=== PATIENT | male | born 1940 | race Caucasian/White ===

== ENCOUNTER 2019-09-23 02:54 | Observation (INO) | payer MEDICARE, SELFPAY ==
[2019-09-23] VITALS (10 sets, daily range): BP systolic 115–165; BP diastolic 54–86; PULSE 53–72; RESP 9–20; TEMP 36.2–36.6; O2SAT 89–99; BMI 29.0
--- NOTE | ~2019-09-23 | CT_ITS ---
EXAMINATION: CT brain wo con DATE: 09/23/2019 03:58 INDICATION: Headache and dizziness post fall with head injury TECHNIQUE: Computed tomography (CT) of the head was performed without intravenous contrast. Sagittal and coronal reconstructions were performed. The mA was adjusted according to patient size. Iterative reconstruction technique was employed. The dose-length product was 605.33 mGy-cm. COMPARISON: head CT dated 03/21/2018 FINDINGS: No fracture. Small old lacunar infarct at the head of the left caudate nucleus. Additional small old infarcts at the high left parietal lobe and in the right cerebellar hemisphere. There is mild scatter ed white matter hypoattenuation consistent with chronic small vessel ischemic disease. No acute intra cranial hemorrhage, acute infarction or abnormal extra axial fluid collection. Ventricles are normal and symmetric. No mass/mass effect. Chronic small metallic foreign body which appears embedded along the anterior table of the right frontal bone. Changes of bilateral intraocular lens replacement. The orbits, paranasal sinuses and mastoid air cells are normal. Intracranial calcified cerebral atherosc lerosis is noted. IMPRESSION: 1. No fracture or acute intracranial process. 2. Small old infarcts at the left caudate nucleus, left parietal lobe and right cerebellar hemisphere . 3. Mild scattered white matter hypoattenuation consistent with chronic small vessel ischemic disease. Reviewed, dictated and finalized at location A. IMPRESSION: 1. No fracture or acute intracranial process. 2. Small old infarcts at the left caudate nucleus, left parietal lobe and right cerebellar hemisphere. 3. Mild scattered white matter hypoattenuation consistent with chronic small ve ssel ischemic disease.
--- NOTE | 2019-09-23 02:56 | ED.FALL ---
HPI - Fall General Chief Complaint: Fall Stated Complaint: fall Time Seen by Provider: 09/23/19 02:52 Source: patient, EMS and RN notes reviewed Mode of arrival: EMS Limitations: clinical condition History of Present Illness HPI Narrative: A 79 y/o male presents to the ED via EMS from home after having multiple ground level falls this evening. Per EMS states that the pt's reported that the pt has fallen multiple times tonight and during the last one he hit the top of his head. The pt reports a CANCHOLA and dizziness. EMS also notes that the pt has been having slurred speech but that per the pt's that is a chronic issue. The pt denies any CP, SOB, or palpitations. MD complaint: fall Onset (ago): unknown Fall from: standing Place fall occurred: home Symptoms prior to fall: dizziness Location of injury: head Associated symptoms (after fall): headache and other (dizziness and slurred speech (chronic)) Related Data Home Medications Medication Instructions Recorded Confirmed amlodipine 5 mg tablet 5 mg PO DAILY 06/07/19 aspirin 81 mg tablet,delayed 81 mg PO DAILY 06/07/19 release atorvastatin 40 mg tablet 40 mg PO QPM tablet 06/07/19 gabapentin 600 mg tablet 600 mg PO TID 06/07/19 isosorbide mononitrate 60 mg 120 mg PO QAM tablet 06/07/19 tablet,extended release 24 hr melatonin 10 mg capsule 10 mg PO .QHS cap 06/07/19 metoclopramide HCl 10 mg tablet 10 mg PO Q6H PRN 06/07/19 nitroglycerin 0.4 mg sublingual 0.4 mg SUBLINGUAL Q5M PRN 06/07/19 tablet furosemide 20 mg tablet 20 mg PO QAM 07/19/19 potassium chloride 10 mEq 10 meq PO DAILY 07/19/19 tablet,extended release acetaminophen [Tylenol Extra 1,000 mg PO TID 09/23/19 Strength] metoprolol tartrate 25 mg PO BID 09/23/19 Allergies Allergy/AdvReac Type Severity Reaction Status Date / Time DARBY Inhibitors Allergy Mild Unknown Verified 09/23/19 03:21 Review of Systems Review of Systems: All systems reviewed & are unremarkable except as noted in HPI and below Cardiovascular: Cardiovascular: Denies chest pain and Denies palpitations Respiratory: Respiratory: Denies dyspnea Neurologic: Reports Abnormal speech present (slurred - chronic), Reports dizziness, Reports frequent falls and Reports headache(s) [facility] Past Medical History Medical History Arthritis CAD (coronary artery disease) Carotid artery calcification Carotid stenosis, left Chronic arthralgias of knees and hips CVA (cerebrovascular accident) Fusion of lumbar spine Gastroparesis GERD (gastroesophageal reflux disease) Gout Hyperlipidemia Hypertension Inguinal hernia Neuropathy Osteoarthritis of right shoulder Peripheral neuropathy Rotator cuff insufficiency of left shoulder Skin cancer TIA (transient ischemic attack) Type 2 diabetes mellitus Surgical History Surgical History H/O carotid endarterectomy H/O inguinal hernia repair History of heart bypass surgery History of left hip replacement History of surgical removal of skin lesion Hx of appendectomy Hx of fusion of cervical spine Family History Family History Other Hypertension Social History Social History Smoking status: Former smoker Second hand tobacco smoke exposure: Yes Smoking end date: 06/27/02 Alcohol intake: current Substance use: never Substance use type: does not use Gender identity (if verbalized by the patient): Male Course Vital Signs Vital signs: Vital Signs Temperature 36.5 C 09/23/19 02:59 Pulse Rate 65 09/23/19 02:59 Respiratory Rate 9 L 09/23/19 02:59 Blood Pressure 135/70 09/23/19 02:59 Pulse Oximetry 95 09/23/19 02:59 Temperature 36.5 C 09/23/19 02:59 Pulse Rate 64 09/23/19 04:16 Respiratory Rate 16 09/23/19 04:16 Blood Pressure 128/69 09/23/19 04:16 Puls
--- NOTE | 2019-09-23 03:04 | ECG_ITS ---
Measurements Intervals [place] Rate: 67 P: 49 MT: 155 QRS: 26 QRSD: 102 T: 62 QT: 395 QTc: 418 Interpretive Statements SINUS RHYTHM LOW VOLTAGE- LIMB LEADS BORDERLINE ECG Electronically Signed On 09-23-2019 7:48:37 CDT by Glen White D.O.
[2019-09-23 03:51] LABS: Basophils Percent Auto 0.3 % (0.2-1.2); Eosinophils Absolute Auto 0.1 K/mm3 (0-0.3); Eosinophils Percent Auto 1.2 % (0-4.4); Hematocrit 32.5 % (42.0-52.0); Immature Granulocyte Absolute 0.06 K/mm3 (0.00-0.031); Immature Granulocyte Percent A 0.9 % (0-0.5); Lymphocytes Absolute Auto 1.47 K/mm3 (0.9-3.2); Lymphocytes Percent Auto 22.5 % (18.3-44.2); Mean Corpuscular HGB Conc 30.8 g/dl (32-36); Mean Corpuscular Volume 94.2 fl (80-100); Monocytes Absolute Auto 0.6 K/mm3 (0.1-0.6); Monocytes Percent Auto 9.3 % (2.6-8.5); Neutrophils Absolute Auto 4.3 K/mm3 (1.3-6.7); Neutrophils Percent Auto 65.8 % (45.5-73.1); Platelet Count Result 140 k/mm3 (150-375); Red Blood Count 3.45 M/mm3 (4.6-6.20); Red Cell Distribution Width 13.8 % (11.5-14.5); White Blood Count 6.5 K/mm3 (4.5-10.0)
[2019-09-23 04:05] LABS: INR 1.1
[2019-09-23 04:06] LABS: Partial Thromboplastin Time 27.4 SECONDS (22.3-36.8)
[2019-09-23 04:07] LABS: Alanine Aminotransferase 14 U/L (4-50); Albumin Level 3.9 g/dL (3.5-5.1); Alkaline Phosphatase 75 U/L (38-126); Aspartate Amino Transferase 19 U/L (17-59); Bilirubin,Total 0.2 mg/dL (0.2-1.3); Blood Urea Nitrogen 29 mg/dL (9-20); Calcium 8.8 mg/dL (8.4-10.2); Carbon Dioxide 22 mmol/L (22-30); Chloride 106 mmol/L (98-107); Estimated Glomerular Filt Rate 49; Glucose 126 mg/dL (75-110); Potassium 4.8 mmol/L (3.4-5.0); Sodium 138 mmol/L (137-145)
[2019-09-23 04:08] LABS: Lactic Acid Reflex 1.1 mmol/L (0.7-2.1)
[2019-09-23 04:21] LABS: Add Urine Microscopic? NO; Appearance Urine Clear (Clear); Bacteria Urine Trace /hpf; Bilirubin Urine Negative (Negative); Blood Urine Negative (Negative); Color Urine Yellow (Yellow); Glucose Urine UA Negative (Negative); Ketones Urine Negative (Negative); Leukocyte Esterase Ur Negative LEU/UL (Negative); Mucus Urine Rare /lpf; Nitrate Urine Negative (Negative); Protein Urine Negative (Negative); RBC Urine 0-2 /hpf (0-2); Squamous Epithelial Cell Urine Rare /hpf (Few); Urobilinogen Urine Negative mg/dL (<2.0); WBC Urine 0-3 /hpf
[2019-09-23 05:00] LABS: Alveolar/Arterial O2 Gradient 9.7 mmHg; Base Excess ABG -2.2 mEq/l (+/-2.0); Device ROOM AIR; Fractional Inspired Oxygen 21 %; HCO3 ABG 23.1 mEq/l (22.0-26.0); Modified Allen's Test Pass; Oxygen Content ABG 14.6 %vol (16.0-22.0); Oxygen Saturation ABG 96.7 % (95.0-100.0); Oxyhemoglobin 94.3 % THb (90.0-100.0); PCO2 ABG 41.4 mmHg (35.0-45.0); PO2 ABG 90.5 mmHg (80.0-100.0); PO2 FiO2 Ratio Arterial Blood 4.31 %; Site Drawn RIGHT RADIAL; Total Hemoglobin 10.9 g/dL (12.0-18.0); pH ABG 7.364 (7.350-7.450)
[2019-09-23] MEDS: LACTATED RINGERS 1,000 ML 75 ML IV CONT ×2 (06:50→20:41)
--- NOTE | 2019-09-23 06:51 | ADMGEN ---
This patient, Carl Gonzales, was admitted to 3 Medical Room 343-01. Patient/family oriented to hospital policies and general routines including ID bracelet, bed and alarms, visiting hours, pain management, procedures, bathroom and other care routines, personal items, smoking policy, room service/diet, and visiting hours. Valuables list has been completed. Information on how to activate the Rapid Response Team has been discussed. Patient/Family are encouraged to report perceived risks to care and to ask questions if they do not understand what they are told or what they should do.
[2019-09-23 08:38] LABS: Glucose Point of Care 156 (65-105)
[2019-09-23] MEDS: PANTOPRAZOLE 40 MG TABLET PO (09:45)
[2019-09-23] MEDS: ASPIRIN 81 MG ENTERIC TABLET PO (09:45)
[2019-09-23] MEDS: METOCLOPRAMIDE HCL 10 MG TABLET PO ×3 (09:45→17:24)
[2019-09-23] MEDS: AMLODIPINE BESYLATE 2.5 MG TABLET PO (09:45)
[2019-09-23] MEDS: GABAPENTIN 300 MG CAPSULE 600 MG PO ×2 (09:45→13:14)
[2019-09-23] MEDS: ISOSORBIDE MONONITRATE 60 MG TAB.ER.24H 120 MG PO (09:46)
[2019-09-23] MEDS: METOPROLOL TARTRATE 25 MG TABLET PO ×2 (09:46→20:32)
--- NOTE | 2019-09-23 11:45 | PM.IMHP ---
H&P: HPI History of Present Illness Chief complaint: Multiple falls, weakness Narrative: Date of Service 09/23/19 Supervising physician for this history and physical is Dr. Leal. Mr. Gonzales is a 79yo M with history of coronary artery disease s/p CABG, type 2 diabetes mellitus, prior CVA who presented to the ED for evaluation after multiple falls at home yesterday. He describes a sudden onset of dizziness felt that the room was spinning when he stood up or changed positions. His symptoms exacerbate when he turns his head to the side. He reports this made him nauseous but he did not vomit. At time of my encounter, he is sitting in bedside chair and notes that he is not dizzy currently. He denies headache. He denies chest pain, palpitations, or calf tenderness. He reports he is mildly short of breath with exertion at baseline which is not any worse than his normal today. He denies cough or any recent travel. No known sick contacts. Contacted his , [place], for more information and she notes that he often stutters and has trouble finding his words at baseline. She tells me he became dizzy after he fell and hit his head on the wall. CT brain on arrival showed no acute intracranial abnormalities, demonstrated old infarcts at the left caudate nucleus, left parietal lobe and right cerebellar hemisphere. Routine labs are grossly normal aside from a normocytic anemia and mildly elevated Cr at 1.4, BUN 29. Patient is admitted for observation of generalized weakness after multiple falls at home, dehydration. Review of Systems Review of Systems: Narrative: He denies chest pain. He describes mild exertional dyspnea which is no worse than his normal right now. No nausea, vomiting, diarrhea, constipation, hematochezia, melena. He describes dizziness when he stands up, not as much when he sitting/resting. Denies headache today or ear pain. Twelve systems were reviewed with pertinent positives and negatives as per HPI. [facility] Past Medical History Medical History (Updated 09/23/19 @ 15:44 by Anh Miller PA-C) Arthritis CAD (coronary artery disease) His steam and power supervisor is Dr Anthony Pinzon with [facility]. Carotid artery calcification Carotid stenosis, left Chronic arthralgias of knees and hips CVA (cerebrovascular accident) Fusion of lumbar spine Gastroparesis GERD (gastroesophageal reflux disease) Gout Hyperlipidemia Hypertension Inguinal hernia Neuropathy Osteoarthritis of right shoulder Peripheral neuropathy Rotator cuff insufficiency of left shoulder Skin cancer TIA (transient ischemic attack) Type 2 diabetes mellitus Surgical History Surgical History H/O carotid endarterectomy H/O inguinal hernia repair History of heart bypass surgery 2003 History of left hip replacement History of surgical removal of skin lesion Hx of appendectomy Hx of fusion of cervical spine Family History Family History Mother Acute myocardial infarction Other Hypertension Social History Social History Social History: Mr. Gonzales lives at home with his in [place] and is retired from working as a maya. He reports drinking about 4-5 beers per week. He smoked 2-3 packs per day of cigarettes x40 years, quit in 2002. No other drug use. PCP is Dr. Kaila Angela. He designates his , [place], as his surrogate decision maker. He wishes to be full code status. Smoking status: Former smoker Second hand tobacco smoke exposure: Yes Smoking end date: 06/27/02 Alcohol intake: current Drinks per week: 5 Alcohol use details: Beer Substance use: never Substance use type: does not use Living arrangements: with family Occupation/Education: retired Gender identity (if verbalized by the patient): Male Spiritual care concerns: No Agree
[2019-09-23 11:59] LABS: Glucose Point of Care 128 (65-105)
[2019-09-23 16:31] LABS: Glucose Point of Care 126 (65-105)
[2019-09-23] MEDS: GABAPENTIN 300 MG CAPSULE PO (17:24)
[2019-09-23] MEDS: ATORVASTATIN 40 MG TABLET PO (17:26)
[2019-09-23] MEDS: MECLIZINE HCL 6.25 MG TABLET PO (17:48)
[2019-09-23] MEDS: MELATONIN 5 MG TABLET 10 MG PO (20:32)
[2019-09-23 23:13] LABS: Glucose Point of Care 149 (65-105)
[2019-09-24] MEDS: LORAZEPAM INJ 2 MG/ML VIAL 0.5 MG IV PUSH (04:44)
[2019-09-24 05:24] LABS: Hematocrit 36.7 % (42.0-52.0); Hemoglobin 10.9 g/dL (14.0-18.0); Mean Corpuscular HGB Conc 29.7 g/dl (32-36); Mean Corpuscular Hemoglobin 29.3 pg (26-34); Mean Corpuscular Volume 98.7 fl (80-100); Mean Platelet Volume 9.9 fl (7.4-10.4); Platelet Count Result 134 k/mm3 (150-375); Red Blood Count 3.72 M/mm3 (4.6-6.20); Red Cell Distribution Width 13.5 % (11.5-14.5)
[2019-09-24 05:38] LABS: Blood Urea Nitrogen 18 mg/dL (9-20); Calcium 9.3 mg/dL (8.4-10.2); Carbon Dioxide 24 mmol/L (22-30); Chloride 107 mmol/L (98-107); Estimated CRCL calculation 53 ml/min; Estimated Glomerular Filt Rate > 60; Glucose 141 mg/dL (75-110); Magnesium 1.7 mg/dL (1.6-2.3); Phosphorus 3.3 mg/dL (2.5-4.5); Potassium 4.7 mmol/L (3.4-5.0); Sodium 139 mmol/L (137-145)
[2019-09-24 06:00] VITALS: BP 148/84; PULSE 75; RESP 16; TEMP 35.9; O2SAT 97
[2019-09-24] MEDS: METOCLOPRAMIDE HCL 10 MG TABLET PO (08:02)
[2019-09-24] MEDS: METOPROLOL TARTRATE 25 MG TABLET PO ×2 (08:02→21:07)
[2019-09-24] MEDS: AMLODIPINE BESYLATE 2.5 MG TABLET PO (08:03)
[2019-09-24] MEDS: PANTOPRAZOLE 40 MG TABLET PO (08:03)
[2019-09-24] MEDS: GABAPENTIN 300 MG CAPSULE PO ×3 (08:03→17:53)
[2019-09-24] MEDS: ISOSORBIDE MONONITRATE 60 MG TAB.ER.24H 120 MG PO (08:03)
[2019-09-24] MEDS: MECLIZINE HCL 6.25 MG TABLET PO ×2 (08:03→11:46)
[2019-09-24] MEDS: ASPIRIN 81 MG ENTERIC TABLET PO (08:03)
[2019-09-24 08:48] LABS: Glucose Point of Care 130 (65-105)
--- NOTE | 2019-09-24 11:06 | PCPTNOTE ---
During therapy session this A.M. patient frequently became agitated refusing to follow safety instructions during transfers and ambulation. Patient demonstrated confusion stating that his was sitting in the corner of the room and he wanted to walk over to her. Minimal ability to redirect patient and orient to place and time. Assist needed continuously to maintain standing balance during static standing and gait when patient would let go of the walker. RN in room throughout therapy session and Hospitalist notified of increased safety concerns.
--- NOTE | 2019-09-24 11:10 | P.PNIM_ITS ---
Progress Note: A&P Assessment and Plan (1) Altered mental status: Qualifiers: Altered mental status type: delirium Qualified Code(s): R41.0 - Disorientation, unspecified Code(s): R41.82 - Altered mental status, unspecified Status: Acute Assessment and Plan: * Patient was mildly confused yesterday, about the date and many of his medical conditions. His noted this was normal for him. Today he is much more confused. Suspect hospital delirium superimposed on undiagnosed dementia? * CT brain on arrival with findings consistent with his prior CVA, no acute intracranial abnormalities. UA negative. * Appreciate neurology consultation. * Added low dose seroquel. (2) Generalized weakness: Code(s): R53.1 - Weakness Status: Acute Assessment and Plan: * Patient fell at home multiple times. PT/OT eval is appreciated. He was quite unsteady with therapy and recommend placement for continued PT/OT. * His notes that he is tired all the time. Denies a diagnosis of sleep apnea or thyroid disorder. TSH normal. Apnea link positive - recommend sleep study as an outpatient at a later date. (3) Dizziness: Code(s): R42 - Dizziness and giddiness Status: Acute Assessment and Plan: * Symptoms seemed consistent with vertigo yesterday. CT brain with no acute intracranial abnormalities. Recommend vestibular therapy. * Added meclizine today, will hold in light of his new confusion. (4) Dehydration: Code(s): E86.0 - Dehydration Status: Resolved Assessment and Plan: * Cr improved to 1.0 with IV hydration. Patient pulled out IV, stop IV fluids. (5) CAD (coronary artery disease): Qualifiers: Associated angina: without angina Coronary Disease-Associated Artery/Lesion type: bypass graft [place] vs. transplanted heart: [place] heart Qualified Code(s): I25.810 - Atherosclerosis of coronary artery bypass graft(s) without angina pectoris Code(s): I25.10 - Atherosclerotic heart disease of [place] coronary artery without angina pectoris Status: Chronic Assessment and Plan: * His chainstitch felled seam operator is Dr. Pinzon with [facility]. notes he has intermittent episodes of chest pain (Dr Pinzon notes in EMR confirm this), but no chest pain yesterday. Stable. Continue his home medications. (6) Hypertension: Qualifiers: Hypertension type: essential hypertension Qualified Code(s): I10 - Essential (primary) hypertension Code(s): I10 - Essential (primary) hypertension Status: Chronic Assessment and Plan: * BP elevated today. Continue home medications with Lopressor, Norvasc. Monitor BP. (7) Type 2 diabetes mellitus: Qualifiers: Diabetes mellitus mcc insulin use: without termite inspector use Diabetes mellitus complication status: without complication Qualified Code(s): E11.9 - Type 2 diabetes mellitus without complications Code(s): E11.9 - Type 2 diabetes mellitus without complications Status: Chronic Assessment and Plan: * Blood sugar stable today. Home metformin held due to renal function. Continue to monitor Accu-Cheks, cover with SSI. (8) Neuropathy: Code(s): G62.9 - Polyneuropathy, unspecified Status: Acute Assessment and Plan: * Continue his home gabapentin. His is concerned that this medication
--- NOTE | 2019-09-24 11:10 | PM.IMPN ---
Progress Note: A&P Assessment and Plan (1) Altered mental status: Qualifiers: Altered mental status type: delirium Qualified Code(s): R41.0 - Disorientation, unspecified Code(s): R41.82 - Altered mental status, unspecified Status: Acute Assessment and Plan: Patient was mildly confused yesterday, about the date and many of his medical conditions. His noted this was normal for him. Today he is much more confused. Suspect hospital delirium superimposed on undiagnosed dementia? CT brain on arrival with findings consistent with his prior CVA, no acute intracranial abnormalities. UA negative. Appreciate neurology consultation. Added low dose seroquel. (2) Generalized weakness: Code(s): R53.1 - Weakness Status: Acute Assessment and Plan: Patient fell at home multiple times. PT/OT eval is appreciated. He was quite unsteady with therapy and recommend placement for continued PT/OT. His notes that he is tired all the time. Denies a diagnosis of sleep apnea or thyroid disorder. TSH normal. Apnea link positive - recommend sleep study as an outpatient at a later date. (3) Dizziness: Code(s): R42 - Dizziness and giddiness Status: Acute Assessment and Plan: Symptoms seemed consistent with vertigo yesterday. CT brain with no acute intracranial abnormalities. Recommend vestibular therapy. Added meclizine today, will hold in light of his new confusion. (4) Dehydration: Code(s): E86.0 - Dehydration Status: Resolved Assessment and Plan: Cr improved to 1.0 with IV hydration. Patient pulled out IV, stop IV fluids. (5) CAD (coronary artery disease): Qualifiers: Associated angina: without angina Coronary Disease-Associated Artery/Lesion type: bypass graft [place] vs. transplanted heart: [place] heart Qualified Code(s): I25.810 - Atherosclerosis of coronary artery bypass graft(s) without angina pectoris Code(s): I25.10 - Atherosclerotic heart disease of [place] coronary artery without angina pectoris Status: Chronic Assessment and Plan: His plastic roller is Dr. Pinzon with [facility]. notes he has intermittent episodes of chest pain (Dr Pinzon notes in EMR confirm this), but no chest pain yesterday. Stable. Continue his home medications. (6) Hypertension: Qualifiers: Hypertension type: essential hypertension Qualified Code(s): I10 - Essential (primary) hypertension Code(s): I10 - Essential (primary) hypertension Status: Chronic Assessment and Plan: BP elevated today. Continue home medications with Lopressor, Norvasc. Monitor BP. (7) Type 2 diabetes mellitus: Qualifiers: Diabetes mellitus exterminator helper insulin use: without exterminator helper use Diabetes mellitus complication status: without complication Qualified Code(s): E11.9 - Type 2 diabetes mellitus without complications Code(s): E11.9 - Type 2 diabetes mellitus without complications Status: Chronic Assessment and Plan: Blood sugar stable today. Home metformin held due to renal function. Continue to monitor Accu-Cheks, cover with SSI. (8) Neuropathy: Code(s): G62.9 - Polyneuropathy, unspecified Status: Acute Assessment and Plan: Continue his home gabapentin. His is concerned that this medication is making him excessively tired, will decrease the dose. (9) Gastroparesis: Code(s): K31.84 - Gastroparesis Status: Chronic Assessment and Plan: Continue his home medications. No acute issues. Subjective Date/time seen: 09/24/19 1045 Interval history: Mr. Gonzales is a 79yo M admitted aft
[2019-09-24] MEDS: QUEtiapine FUMARATE 12.5 MG TABLET PO ×2 (12:03→21:07)
[2019-09-24 12:09] LABS: Glucose Point of Care 148 (65-105)
[2019-09-24] MEDS: ATORVASTATIN 40 MG TABLET PO (17:54)
[2019-09-24 18:06] LABS: Glucose Point of Care 168 (65-105)
[2019-09-24 18:25] VITALS: BP 164/84; PULSE 67; RESP 16; TEMP 36; O2SAT 97
[2019-09-24 19:58] VITALS: BP 144/70; PULSE 78; RESP 16; TEMP 36.5; O2SAT 97
[2019-09-24 20:00] VITALS: PULSE 78; RESP 16; O2SAT 97
[2019-09-24 21:07] VITALS: PULSE 78
[2019-09-24] MEDS: MELATONIN 5 MG TABLET 10 MG PO (21:07)
[2019-09-24 21:21] LABS: Glucose Point of Care 129 (65-105)
[2019-09-25 04:46] VITALS: BP 134/77; PULSE 69; RESP 15; TEMP 36.2; O2SAT 98
[2019-09-25 08:25] LABS: Glucose Point of Care 140 (65-105)
[2019-09-25] MEDS: QUEtiapine FUMARATE 12.5 MG TABLET PO (08:41)
[2019-09-25] MEDS: GABAPENTIN 300 MG CAPSULE PO ×3 (08:42→16:20)
[2019-09-25] MEDS: METOPROLOL TARTRATE 25 MG TABLET PO (08:42)
[2019-09-25] MEDS: ASPIRIN 81 MG ENTERIC TABLET PO (08:43)
[2019-09-25] MEDS: PANTOPRAZOLE 40 MG TABLET PO (08:43)
[2019-09-25] MEDS: ISOSORBIDE MONONITRATE 60 MG TAB.ER.24H 120 MG PO (08:43)
[2019-09-25] MEDS: AMLODIPINE BESYLATE 2.5 MG TABLET PO (08:43)
[2019-09-25] MEDS: MAGNESIUM OXIDE 200 MG TABLET PO ×2 (09:00→16:19)
[2019-09-25 12:12] LABS: Glucose Point of Care 128 (65-105)
--- NOTE | 2019-09-25 13:11 | CONS_ITS ---
DATE OF CONSULTATION: HISTORY OF PRESENT ILLNESS: This 79-year-old right-handed male has been admitted to [facility] through the emergency room for the complaint of generalized weakness with multiple falls in addition to history of 1. CABG. 2. Diabetes mellitus. 3. Previous CVA. At the time of visit to the ER, he complained of sudden onset of severe dizziness with exacerbation of the symptomatology with turning the head from side to side with no associated headache or any other generalized symptomatology. He has no history of cough or any recent travel or known sick contacts. reported that he definitely occasionally stutters and has difficulty in finding the right words at the baseline. Initial CT in the emergency room revealed no evidence of bleed, but documented the old infarct in the left caudate nucleus, left parietal lobe, and right cerebellar hemisphere. Routine lab was normal except normocytic anemia. Creatinine was elevated to 1.4 with BUN of 29. PAST MEDICAL HISTORY: The patient has, in the past, history of multiple problems as outlined, particularly coronary artery disease, carotid artery calcification and stenosis on the left side, severe arthritis, stroke, fusion of the lumbar spine, gastroparesis, GERD, gout, hyperlipidemia, hypertension, inguinal hernia, neuropathy, osteoarthritis of right shoulder, rotator cuff insufficiency of left shoulder, TIA and skin cancer as well. PAST SURGICAL HISTORY: He has undergone carotid endarterectomy, inguinal hernial repair, bypass surgery, left hip replacement, surgical removal of skin lesion, appendectomy, and fusion of cervical spine. SOCIAL HISTORY: He is a former smoker. Current alcohol drinker, 5 drinks per week. MEDICATIONS: He has been taking multiple medications as outlined above. ALLERGIES: EVALUATION UP UNTIL NOW REVEALED HIM TO BE ALLERGIC TO DARBY INHIBITOR. PHYSICAL EXAMINATION: VITAL SIGNS: Afebrile, pulse 65, respiration 9, blood pressure 135/70, pulse ox 95%. HEENT: Head normocephalic with no cranial bruit. Ears, nose, throat examination normal. NECK: Supple with no meningeal signs with soft cervical bruit. HEART: Regular with murmur. LUNGS: Clear. ABDOMEN: Soft and flabby. NEUROLOGICAL: He is awake, alert, tries to communicate but speech is somewhat dysphasic. Pupils round, regular. Weathers of vision were full to threat stimuli. Extraocular movements were full spontaneously with no nystagmus. He was able to move both upper and lower extremities, but has decreased deep tendon reflexes in the lower extremities and plantar responses were downgoing with decreased sensation distally in both lower extremities. DIAGNOSTIC STUDIES: Up until now, CT of the head has been done, which revealed no broken bone, old infarct in left caudate, left parietal lobe, right cerebellar hemisphere and white matter hypoattenuation, consistent with chronic small-vessel ischemic disease. IMPRESSION: Multiple factors involving the gait dysfunction, central stroke with peripheral neuropathy, cerebellar infarct as well. The patient is receiving amlodipine and aspirin. Treatment will be continued as such. He will simply benefit from the therapy. SHEILA RUIZ M.D. DEPARTMENT OF SOCIOLOGY CHAIR DEPARTMENT OF SOCIOLOGY CHAIR D I MT: Mag
--- NOTE | 2019-09-25 13:42 | P.DS_ITS ---
DS: Diagnosis Admitting Diagnosis Admitting Diagnosis: Weakness Discharge Diagnosis (1) Altered mental status: Qualifiers: Altered mental status type: delirium Qualified Code(s): R41.0 - Disorientation, unspecified Code(s): R41.82 - Altered mental status, unspecified Status: Acute Assessment and Plan: * Suspect hospital delirium yesterday superimposed on undiagnosed dementia? due to his CT Brain showing signs of multiple prior CVAs, no acute intracranial abnormalities. UA negative. * Neurology was consulted who recommended PT/OT therapy for gait dysfunction from prior strokes and peripheral neuropathy. * Patient is much improved today, alert to self, place (hospital), year but told me the president was Meng. * He was accepted into SNF at [place] to help him become stronger and reduce the risk of him falling. * The patient family understand and agree with the plan at this time. All questions answered. (2) Generalized weakness: Code(s): R53.1 - Weakness Status: Acute Assessment and Plan: * Patient fell at home multiple times. PT/OT eval is appreciated. * He was quite unsteady with therapy and recommend placement for continued PT/OT. * His notes that he is tired all the time. Denies a diagnosis of sleep apnea or thyroid disorder. TSH normal. Apnea link positive - recommend sleep study as an outpatient at a later date. * He was accepted into SNF for further PT/OT. (3) Dizziness: Code(s): R42 - Dizziness and giddiness Status: Acute Assessment and Plan: * Symptoms seemed consistent with vertigo yesterday. CT brain with no acute intracranial abnormalities. Recommend vestibular therapy. * Added meclizine but then held it due to confusion. He denies any dizziness today. Will continue holding. (4) Dehydration: Code(s): E86.0 - Dehydration Status: Resolved Assessment and Plan: * Cr improved to 1.0 with IV hydration. (5) CAD (coronary artery disease): Qualifiers: Associated angina: without angina Coronary Disease-Associated Artery/Lesion type: bypass graft [place] vs. transplanted heart: [place] heart Qualified Code(s): I25.810 - Atherosclerosis of coronary artery bypass graft(s) without angina pectoris Code(s): I25.10 - Atherosclerotic heart disease of [place] coronary artery without angina pectoris Status: Chronic Assessment and Plan: * His head pumper is Dr. Pinzon with [facility] [employer]. notes he has intermittent episodes of chest pain (Dr Pinzon notes in EMR confirm this), but no chest pain yesterday. * He denies any chest pain today. Stable. (6) Hypertension: Qualifiers: Hypertension type: essential hypertension Qualified Code(s): I10 - Essential (primary) hypertension Code(s): I10 - Essential (primary) hypertension Status: Chronic Assessment and Plan: * BP stable at 134/77. * Continue home medications with Lopressor, Norvasc. (7) Type 2 diabetes mellitus: Qualifiers: Diabetes mellitus complication status: without complication Diabetes mellitus assisted insulin use: without assistant terminal manager use Qualified Code(s): E11.9 - Type 2 diabetes mellitus without complications Code(s): E11.9 - Type 2 diabetes mellitus without complications Status: Chronic Assessmen
--- NOTE | 2019-09-25 13:42 | PM.DS ---
DS: Diagnosis Admitting Diagnosis Admitting Diagnosis: Weakness Discharge Diagnosis (1) Altered mental status: Qualifiers: Altered mental status type: delirium Qualified Code(s): R41.0 - Disorientation, unspecified Code(s): R41.82 - Altered mental status, unspecified Status: Acute Assessment and Plan: Suspect hospital delirium yesterday superimposed on undiagnosed dementia? due to his CT Brain showing signs of multiple prior CVAs, no acute intracranial abnormalities. UA negative. Neurology was consulted who recommended PT/OT therapy for gait dysfunction from prior strokes and peripheral neuropathy. Patient is much improved today, alert to self, place (hospital), year but told me the president was Meng. He was accepted into SNF at [place] to help him become stronger and reduce the risk of him falling. The patient family understand and agree with the plan at this time. All questions answered. (2) Generalized weakness: Code(s): R53.1 - Weakness Status: Acute Assessment and Plan: Patient fell at home multiple times. PT/OT eval is appreciated. He was quite unsteady with therapy and recommend placement for continued PT/OT. His notes that he is tired all the time. Denies a diagnosis of sleep apnea or thyroid disorder. TSH normal. Apnea link positive - recommend sleep study as an outpatient at a later date. He was accepted into SNF for further PT/OT. (3) Dizziness: Code(s): R42 - Dizziness and giddiness Status: Acute Assessment and Plan: Symptoms seemed consistent with vertigo yesterday. CT brain with no acute intracranial abnormalities. Recommend vestibular therapy. Added meclizine but then held it due to confusion. He denies any dizziness today. Will continue holding. (4) Dehydration: Code(s): E86.0 - Dehydration Status: Resolved Assessment and Plan: Cr improved to 1.0 with IV hydration. (5) CAD (coronary artery disease): Qualifiers: Associated angina: without angina Coronary Disease-Associated Artery/Lesion type: bypass graft [place] vs. transplanted heart: [place] heart Qualified Code(s): I25.810 - Atherosclerosis of coronary artery bypass graft(s) without angina pectoris Code(s): I25.10 - Atherosclerotic heart disease of [place] coronary artery without angina pectoris Status: Chronic Assessment and Plan: His regional safety manager is Dr. Pinzon with [facility]. notes he has intermittent episodes of chest pain (Dr Pinzon notes in EMR confirm this), but no chest pain yesterday. He denies any chest pain today. Stable. (6) Hypertension: Qualifiers: Hypertension type: essential hypertension Qualified Code(s): I10 - Essential (primary) hypertension Code(s): I10 - Essential (primary) hypertension Status: Chronic Assessment and Plan: BP stable at 134/77. Continue home medications with Silvio Ortegac. (7) Type 2 diabetes mellitus: Qualifiers: Diabetes mellitus complication status: without complication Diabetes mellitus termite inspector insulin use: without termite inspector use Qualified Code(s): E11.9 - Type 2 diabetes mellitus without complications Code(s): E11.9 - Type 2 diabetes mellitus without complications Status: Chronic Assessment and Plan: Blood sugar stable today. Home metformin held due to renal function. Will continue home Metformin upon discharge and have facility continue monitoring glucose. (8) Neuropathy: Code(s): G62.9 - Polyneuropathy, unspecified Status: Acute Assessment and Plan: Continue his home gabapentin. His is concerned that this medication is ma
[2019-09-25 14:00] VITALS: BP 104/54; PULSE 97; RESP 18; TEMP 36.2; O2SAT 98
--- NOTE | 2019-09-25 16:15 | PC.NURSE ---
Report given to JIMBO Silva at [facility]. Call placed with [facility] for transportation.
[2019-09-25 17:05] LABS: Glucose Point of Care 154 (65-105)
[2019-09-25] MEDS: ATORVASTATIN 40 MG TABLET PO (17:16)
== END 2019-09-25 19:15 ==
LOC: ANHED 05:28 → ANH3MED 06:03
PROVIDERS: Physician Assistant; Admitting Provider Family Medicine; Emergency Provider Emergency Medicine; PCP Family Medicine; Visit Provider Physician Assistant
DX: R53.1 Weakness (principal); E86.0 Dehydration; R41.0 Disorientation, unspecified; R42 Dizziness and giddiness; R47.81 Slurred speech; I25.810 Atherosclerosis of coronary artery bypass graft(s) without angina pectoris; E11.42 Type 2 diabetes mellitus with diabetic polyneuropathy; E11.43 Type 2 diabetes mellitus with diabetic autonomic (poly)neuropathy; I10 Essential (primary) hypertension; E78.5 Hyperlipidemia, unspecified; K21.9 Gastro-esophageal reflux disease without esophagitis; M10.9 Gout, unspecified; M19.90 Unspecified osteoarthritis, unspecified site; R29.6 Repeated falls; W18.30XA Fall on same level, unspecified, initial encounter; Z79.82 Long term (current) use of aspirin; Z79.84 Long term (current) use of oral hypoglycemic drugs; Z79.899 Other long term (current) drug therapy; Z85.828 Personal history of other malignant neoplasm of skin; Z86.73 Personal history of transient ischemic attack (TIA), and cerebral infarction without residual deficits; Z87.891 Personal history of nicotine dependence; Z96.642 Presence of left artificial hip joint; Z98.1 Arthrodesis status
CPT/HCPCS: 36415; 36600; 70450; 80048; 80053; 81003; 82805; 83605; 83735; 84100; 84443; 85025; 85027; 85610; 85730; 93005; 94762; 96361; 96374; 97110; 97116; 97161; 97165; 97530; 97535; 99285; A9270; G0378; J2060; J7120

== ENCOUNTER 2019-12-14 12:43 | Outpatient (CLI) | payer MEDICARE, SELFPAY ==
--- NOTE | ~2019-12-14 | XR_ITS ---
EXAMINATION: XR knee RT min 4V DATE: 12/14/2019 13:24 INDICATION: Right knee pain. TECHNIQUE: 4 views of right knee were obtained. COMPARISON: None. FINDINGS: Bone alignment is normal. No fracture. There is mild tricompartmental osteoarthritis. No kn ee joint effusion. There is a 3 mm BB medial to femoral metaphysis. There is prepatellar soft tissue swelling, consistent with bursitis. IMPRESSION: 1. Mild right knee osteoarthritis. 2. Prepatellar bursitis. 3. 3 mm BB in the soft tissues medial to femoral metaphysis. Reviewed, dictated and finalized at location A.
== END 2019-12-14 12:44 | disposition home or self-care (01) ==
PROVIDERS: PCP Family Medicine; Visit Provider Family Medicine
DX: M25.561 Pain in right knee (principal); M17.11 Unilateral primary osteoarthritis, right knee; M71.9 Bursopathy, unspecified; M79.5 Residual foreign body in soft tissue
CPT/HCPCS: 73564

== ENCOUNTER 2020-09-08 10:35 | Outpatient (CLI) | payer MEDICARE, SELFPAY ==
--- NOTE | ~2020-09-08 | MR_ITS ---
EXAMINATION: MR brain/brain stem wo con DATE: 09/08/2020 13:23 INDICATION: Dementia. TECHNIQUE: Magnetic resonance imaging (MRI) of the brain and brainstem was performed without intraven ous contrast. Sequences included sagittal and axial T1-weighted FSE, axial diffusion-weighted FS EPI, axial T2*-weighted GRE, axial T2-weighted FLAIR Propeller, and axial T2-weighted Propeller. Apparent diffusion coefficient (ADC) maps were created. COMPARISON: Brain MRI 11/30/2017 FINDINGS: There are small old infarcts in right cerebellum. There are scattered areas of nonspecific increased T2-weighted signal intensity in the cerebral white matter. There is no intracranial hemorrh age, acute infarction, or abnormal intracranial mass lesion. There is a small old infarct in left fro ntoparietal region. The ventricles are normal in size. The paranasal sinuses are clear. There are lik archana changes of ocular lens replacement surgeries. The mastoid air cells are normal. IMPRESSION: 1. Old infarcts in right cerebellum and left frontoparietal region. 2. Stable mild nonspecific cerebral white matter disease, which likely represents chronic small vesse l ischemic disease. Reviewed, dictated and finalized at location A. IMPRESSION: 1. Old infarcts in right cerebellum and left frontoparietal region. 2. Stable mild nonspecific cerebral white matter disease, which likely represen ts chronic small vessel ischemic disease.
--- NOTE | 2020-09-09 09:34 | WPDNEUROLOGY ---
Neurology EEG Report General Information Date of Study: 09/08/20 TEST eeg DIAGNOSIS Dementia CONDITION OF RECORDING awake drowsy and sleep EEG NUMBER [id number] CLINICAL HISTORY patient reported he is having problems with remembering things EEG DESCRIPTION basic resting occipital frequency consists of low to medium voltage 6 to 7 hertz per 2nd theta activity during brief periods of wakefulness bilateral symmetrical sleep activity seen during sleep with normal and symmetrical sleep spindles hyperventilation not done photic stimulation produced normal drive. Non paroxysmal. Nonfocal. Nonlateralizing. IMPRESSION Abnormal record due to the presence of excessive amount of theta activity during wakefulness, Though there is no evidence of any paroxysmal discharge. These abnormalities could be suggestive of underlying organic or metabolic encephalopathy or neuro degenerative process ,clinical correlation recommended.
== END 2020-09-08 10:36 | disposition home or self-care (01) ==
LOC: ANHNEURO 10:37
PROVIDERS: PCP Physician Assistant; Visit Provider Psychiatry & Neurology Neurology
DX: F03.90 Unspecified dementia, unspecified severity, without behavioral disturbance, psychotic disturbance, mood disturbance, and anxiety (principal); R90.82 White matter disease, unspecified; I63.9 Cerebral infarction, unspecified
CPT/HCPCS: 70551; 95816

== ENCOUNTER 2020-11-05 02:59 | Inpatient (IN) | payer MEDICARE, SELFPAY ==
[2020-11-05] VITALS (8 sets, daily range): BP systolic 146–178; BP diastolic 58–88; PULSE 62–97; RESP 16–20; TEMP 36–36.8; O2SAT 97–100; BMI 20.1
--- NOTE | ~2020-11-05 | CT_ITS ---
EXAMINATION: CT brain wo con DATE: 11/05/2020 03:34 INDICATION: Altered mental status post fall from bed TECHNIQUE: Computed tomography (CT) of the head was performed without intravenous contrast. Sagittal and coronal reconstructions were performed. The mA was adjusted according to patient size. Iterative reconstruction technique was employed. The dose-length product was 681.00 mGy-cm. COMPARISON: head CT dated 09/23/2019 and brain MR dated 09/08/2020 FINDINGS: No fracture. There are small old lacunar infarcts at the bilateral caudate nuclei and in the right ce rebellar hemisphere. No acute intracranial hemorrhage, acute infarction or abnormal extra axial fluid collection. There is mild to moderate scattered white matter hypoattenuation consistent with chronic small vessel ischemic disease. Ventricles are normal and symmetric. No mass/mass effect. Changes of bilateral intraocular lens replacement. Mild mucosal thickening in the right maxillary sinus. The orb its and mastoid air cells are normal. Chronic small metallic foreign body near the midline of the rig ht frontal scalp. IMPRESSION: 1. No acute intracranial process. 2. Small old lacunar infarcts in the bilateral caudate nuclei and right cerebellar hemisphere. 3. Mild to moderate scattered white matter hypoattenuation consistent with chronic small vessel ische homero disease. Reviewed, dictated and finalized at location A. IMPRESSION: 1. No acute intracranial process. 2. Small old lacunar infarcts in the bilateral caudate nuclei and right cerebel lar hemisphere. 3. Mild to moderate scattered white matter hypoattenuation consistent with illuminating engineer brijesh small vessel ischemic disease.
--- NOTE | ~2020-11-05 | XR_ITS ---
EXAMINATION: XR chest 1V portable DATE: 11/05/2020 04:26 INDICATION: Weakness. TECHNIQUE: frontal view of the chest was obtained. COMPARISON: Chest radiograph dated 07/19/2019 FINDINGS: Mild right apical pleural-parenchymal scarring. No other airspace opacities, pulmonary edema, pleural effusion or pneumothorax. The cardiomediastinal silhouette is normal. Median sternotomy wires and me diastinal surgical clips are seen, likely from prior coronary artery bypass grafting. Severe right gl enohumeral osteoarthritis. IMPRESSION: 1. No acute cardiopulmonary disease. Reviewed, dictated and finalized at location A.
--- NOTE | 2020-11-05 03:05 | ECG_ITS ---
Measurements Intervals [place] Rate: 62 P: 62 CO: 160 QRS: 19 QRSD: 95 T: 53 QT: 397 QTc: 404 Interpretive Statements SINUS RHYTHM BASELINE ARTIFACT- I, II, III, AVR, AVL, AVF, V1-V6 BORDERLINE ECG Electronically Signed On 11-05-2020 6:57:45 CDT by Glen White D.O.
[2020-11-05 03:26] LABS: Basophils Percent Auto 0.5 % (0.2-1.2); Eosinophils Absolute Auto 0.1 K/mm3 (0-0.3); Eosinophils Percent Auto 1.6 % (0-4.4); Hematocrit 34.5 % (42.0-52.0); Hemoglobin 10.9 g/dL (14.0-18.0); Immature Granulocyte Absolute 0.05 K/mm3 (0.00-0.031); Immature Granulocyte Percent A 0.8 % (0-0.5); Lymphocytes Absolute Auto 1.53 K/mm3 (0.9-3.2); Lymphocytes Percent Auto 25.2 % (18.3-44.2); Mean Corpuscular HGB Conc 31.6 g/dl (32-36); Mean Corpuscular Hemoglobin 29.8 pg (26-34); Mean Corpuscular Volume 94.3 fl (80-100); Mean Platelet Volume 9.8 fl (7.4-10.4); Monocytes Absolute Auto 0.6 K/mm3 (0.1-0.6); Monocytes Percent Auto 9.9 % (2.6-8.5); Neutrophils Absolute Auto 3.8 K/mm3 (1.3-6.7); Platelet Count Result 140 k/mm3 (150-375); Red Blood Count 3.66 M/mm3 (4.6-6.20); Red Cell Distribution Width 15.1 % (11.5-14.5); White Blood Count 6.1 K/mm3 (4.5-10.0)
[2020-11-05 03:37] LABS: Alanine Aminotransferase 14 U/L (4-50); Alkaline Phosphatase 78 U/L (38-126); Anion Gap 10 mmol/L (8-16); Aspartate Amino Transferase 21 U/L (17-59); Bilirubin,Total 0.1 mg/dL (0.2-1.3); Blood Urea Nitrogen 30 mg/dL (9-20); Calcium 9.5 mg/dL (8.4-10.2); Carbon Dioxide 22 mmol/L (22-30); Chloride 111 mmol/L (98-107); Estimated CRCL calculation 41 ml/min; Estimated Glomerular Filt Rate 58; Glucose 100 mg/dL (75-110); Lactic Acid Reflex 2.5 mmol/L (0.7-2.1); Magnesium 1.5 mg/dL (1.6-2.3); Potassium 4.9 mmol/L (3.4-5.0); Sodium 143 mmol/L (137-145)
[2020-11-05 03:39] LABS: INR 1.1; Partial Thromboplastin Time 29.5 SECONDS (22.3-36.8)
--- NOTE | 2020-11-05 03:41 | ED.GENADULT ---
HPI - General Adult General Chief complaint: Fall Stated complaint: fall out of bed/ams Time Seen by Provider: 11/05/20 03:03 History of Present Illness HPI narrative: Patient is a 80-year-old gentleman who presents the emergency department with chief complaint of falling. Per the patient's patient has history of dementia and is being followed by neurology. Patient has been progressively declining over the last year and she has been attempting to care for him at home. Patient has been known to get up and stumbled around the house at night and tonight he got up to go to the bathroom got lost ended up falling gently onto the floor and the patient thought that he was in the bathroom and thought he was urinating in a trash can but was actually urinating on the floor. The patient currently does not complain of any pain he reports that he has no complaints in discussion with the patient's she states that she has been trying to see both his primary care physician and his neurologist but appointments have been pushed back due to the current pandemic situation at this point she does not feel as though she is capable of caring for him anymore at home and is requesting placement. Patient's reports that at home he has had episodes of falling he is also had where she is having to directly help and lift him in and out of bed. Related Data Home Medications Medication Instructions Recorded Confirmed aspirin 81 mg tablet,delayed 81 mg PO DAILY 06/07/19 10/28/20 release atorvastatin 40 mg tablet 40 mg PO QPM tablet 06/07/19 10/28/20 isosorbide mononitrate 60 mg 120 mg PO QAM tablet 06/07/19 10/28/20 tablet,extended release 24 hr acetaminophen [Tylenol Extra 1,000 mg PO TID 09/23/19 10/28/20 Strength] metoprolol tartrate 25 mg PO BID 09/23/19 10/28/20 furosemide 20 mg tablet 20 mg PO QAM 08/27/20 10/28/20 tamsulosin 0.4 mg capsule 0.4 mg PO DAILY 08/27/20 10/28/20 Allergies Allergy/AdvReac Type Severity Reaction Status Date / Time DARBY Inhibitors Allergy Mild Unknown Verified 03/04/20 11:04 Review of Systems Review of Systems: Narrative: A 10 system review of systems was completed on the patient and is negative except for what is stated in the HPI. Nursing and ancillary documentation was reviewed. [facility] Past Medical History Medical History (Updated 11/05/20 @ 04:27 by Chay Valdes MD) Arthritis CAD (coronary artery disease) His mailmaster is Dr Anthony Pinzon with [facility]. Carotid artery calcification Carotid stenosis, left Chronic arthralgias of knees and hips CVA (cerebrovascular accident) Fusion of lumbar spine Gastroparesis GERD (gastroesophageal reflux disease) Gout Hyperlipidemia Hypertension Inguinal hernia Neuropathy Osteoarthritis of right shoulder Peripheral neuropathy Rotator cuff insufficiency of left shoulder Skin cancer TIA (transient ischemic attack) Type 2 diabetes mellitus Surgical History Surgical History H/O carotid endarterectomy H/O inguinal hernia repair History of heart bypass surgery 2003 History of left hip replacement History of surgical removal of skin lesion Hx of appendectomy Hx of fusion of cervical spine Family History Family History Mother Acute myocardial infarction Other Hypertension Social History Social History Social History: Mr. Gonzales lives at home with his in [place] and is retired from working as a [employer]a. He reports drinking about 4-5 beers per week. He smoked 2-3 packs per day of cigarettes x40 years, quit in 2002. No other drug use. PCP is Dr. Kaila Angela. He designates his , [place], as his surrogate decision maker. He wishes to be full code status. Smoking status: Former smoker Tobacco type: cigarettes Second hand
[2020-11-05 03:49] LABS: Troponin I < 0.012 ng/mL (0.000-0.034)
[2020-11-05 04:05] LABS: Add Urine Microscopic? YES; Appearance Urine Clear (Clear); Bilirubin Urine Negative (Negative); Blood Urine Negative (Negative); Color Urine Yellow (Yellow); Glucose Urine UA Negative (Negative); Ketones Urine Negative (Negative); Leukocyte Esterase Ur Negative LEU/UL (Negative); Mucus Urine Rare /lpf; Nitrate Urine Negative (Negative); Protein Urine Negative (Negative); RBC Urine 0-2 /hpf (0-2); Specific Grav Ur 1.028 (1.001-1.035); Squamous Epithelial Cell Urine Rare /hpf (Few); WBC Urine 0-3 /hpf
--- NOTE | 2020-11-05 04:53 | PM.IMHP ---
H&P: HPI History of Present Illness Date/Time: 11/05/20 04:53 Chief Complaint: Fall Narrative: This is an 80-year-old male with past medical history significant for type 2 diabetes mellitus controlled with oral agents hypertension gastroesophageal reflux disease dementia patient has had a progressive decline in his cognition during the year of pandemia patient has slow appointment to see Dr. roberto recinos in the outpatient setting however the palm has been postponed multiple times. Patient was brought to the emergency room after he has progressively having difficulty with the ambulation as well as confusion and disorientation at home after getting up and out of bed he had a fall I was unable to get up on his own. Patient's appetite has been good as per that is in the room with him I have not been able to get id a good history from the patient most of the history I have obtained from emergency room records and , no fevers no rigors no chills no cough no sputum production. Patient has not left the house for the last year or so after pandemic. Preliminary workup is essentially nonrevealing. Review of Systems Review of Systems: Narrative: Patient was brought to the emergency room after he had a fall and was unable to get up on his on patient also mistakenly urinated on the floor thinking that he was using the toilet ROS unobtainable: Yes unobtainable due to medical condition (Dementia) [facility] Past Medical History Medical History (Updated 11/05/20 @ 04:27 by Chay Valdes MD) Arthritis CAD (coronary artery disease) His obstetrics and gynecology professor is Dr Anthony Pinzon [facility]. Carotid artery calcification Carotid stenosis, left Chronic arthralgias of knees and hips CVA (cerebrovascular accident) Fusion of lumbar spine Gastroparesis GERD (gastroesophageal reflux disease) Gout Hyperlipidemia Hypertension Inguinal hernia Neuropathy Osteoarthritis of right shoulder Peripheral neuropathy Rotator cuff insufficiency of left shoulder Skin cancer TIA (transient ischemic attack) Type 2 diabetes mellitus Surgical History Surgical History H/O carotid endarterectomy H/O inguinal hernia repair History of heart bypass surgery 2003 History of left hip replacement History of surgical removal of skin lesion Hx of appendectomy Hx of fusion of cervical spine Family History Family History Mother Acute myocardial infarction Other Hypertension Social History Social History Social History: Mr. Gonzales lives at home with his in [place] and is retired from working as a [employer]a. He reports drinking about 4-5 beers per week. He smoked 2-3 packs per day of cigarettes x40 years, quit in 2002. No other drug use. PCP is Dr. Kaila Angela. He designates his , [place], as his surrogate decision maker. He wishes to be full code status. Smoking status: Former smoker Tobacco type: cigarettes Second hand tobacco smoke exposure: Yes Smoking end date: 06/27/02 Alcohol intake: current Drinks per week: 5 Substance use: never Substance use type: does not use Gender identity (if verbalized by the patient): Male Spiritual care concerns: No Agree to blood products: Yes Meds Home Medications and Allergies Home Medications Medication Instructions Recorded Confirmed Type aspirin 81 mg tablet,delayed 81 mg PO DAILY 06/07/19 10/28/20 History release atorvastatin 40 mg tablet 40 mg PO QPM tablet 06/07/19 10/28/20 History isosorbide mononitrate 60 mg 120 mg PO QAM tablet 06/07/19 10/28/20 History tablet,extended release 24 hr acetaminophen [Tylenol Extra 1,000 mg PO TID 09/23/19 10/28/20 History Strength] metoprolol tartrate 25 mg PO BID 09/23/19 10/28/20 History omeprazole 40 mg capsule,delayed 40 mg
--- NOTE | 2020-11-05 05:40 | ADMGEN ---
This patient, Carl Gonzales, was admitted to 2 Medical Room 249-01. Patient/family oriented to hospital policies and general routines including ID bracelet, bed and alarms, visiting hours, pain management, procedures, bathroom and other care routines, personal items, smoking policy, room service/diet, and visiting hours. Information on how to activate the Rapid Response Team has been discussed. Patient/Family are encouraged to report perceived risks to care and to ask questions if they do not understand what they are told or what they should do.
[2020-11-05] MEDS: SODIUM CHLORIDE 0.9% IV 1,000 ML 125 ML IV CONT ×2 (05:54→14:25)
[2020-11-05 06:29] LABS: Reflex Lactic Acid Yes or No Add Lactic
[2020-11-05 06:57] LABS: Lactic Acid 2.2 mmol/L (0.7-2.1)
[2020-11-05 08:33] LABS: Glucose Point of Care 117 (65-105)
--- NOTE | 2020-11-05 11:18 | WPDNEURCNPN ---
Assessment and Plan Assessment and plan (1) Generalized weakness: Code(s): R53.1 - Weakness Status: Acute Additional Plan history of gradual mental decline and generalized strength in addition to the ongoing history of dementia the CT scan of the head does not reveal any treatable conditions, patient receiving all the medication appropriately and the treatment will be continued as such we will obtain the EEG to rule out the possibility of electrical seizures Consult date: 11/05/20 Time Seen: 10:30 HPI: Carl Gonzales is a 80 year old maleHas been admitted to the hospital for the gradual were significant decline in cognition in addition to ongoing history of type 2 diabetes mellitus, progressiveiy difficulties in ambulation, with no history of associated generalized symptomatology. 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 Carotid artery calcification Carotid stenosis, left Chronic arthralgias of knees and hips CVA (cerebrovascular accident) Fusion of lumbar spine Gastroparesis GERD (gastroesophageal reflux disease) Gout Hyperlipidemia Hypertension Inguinal hernia Neuropathy Osteoarthritis of right shoulder Peripheral neuropathy Rotator cuff insufficiency of left shoulder Skin cancer TIA (transient ischemic attack) Type 2 diabetes mellitus Surgical History Surgical History H/O carotid endarterectomy H/O inguinal hernia repair History of heart bypass surgery 2003 History of left hip replacement History of surgical removal of skin lesion Hx of appendectomy Hx of fusion of cervical spine Family History Family History Mother Acute myocardial infarction Other Hypertension Social History Social History Social History: Mr. Gonzales lives at home with his in [place] and is retired from working as a [employer]. He reports drinking about 4-5 beers per week. He smoked 2-3 packs per day of cigarettes x40 years, quit in 2002. No other drug use. PCP is Dr. Kaila Angela. He designates his , [place], as his surrogate decision maker. He wishes to be full code status. Smoking status: Former smoker Tobacco type: cigarettes Second hand tobacco smoke exposure: Yes Smoking end date: 06/27/02 Alcohol intake: never Drinks per week: 5 Substance use: never Substance use type: does not use Gender identity (if verbalized by the patient): Male Spiritual care concerns: No Agree to blood products: Yes Meds Home Medications and Allergies Home Medications Medication Instructions Recorded Confirmed Type aspirin 81 mg tablet,delayed 81 mg PO DAILY 06/07/19 11/05/20 History release atorvastatin 40 mg tablet 40 mg PO QPM tablet 06/07/19 11/05/20 History isosorbide mononitrate 60 mg 120 mg PO QAM tablet 06/07/19 11/05/20 History tablet,extended release 24 hr acetaminophen [Tylenol Extra 1,000 mg PO TID 09/23/19 11/05/20 History Strength]
[2020-11-05 13:41] LABS: Glucose Point of Care 105 (65-105)
--- NOTE | 2020-11-05 17:47 | PM.IMPN ---
Progress Note: A&P Assessment and Plan (1) Altered mental status: Qualifiers: Altered mental status type: delirium Qualified Code(s): R41.0 - Disorientation, unspecified Code(s): R41.82 - Altered mental status, unspecified Status: Acute Assessment and Plan: Patient with progressive cognitive decline over the last year or so. CT of the head with no acute abnormalities. Neuro consulted. EEG ordered. Continue to monitor. NH placement being arranged. Hold Reglan. Continue Seroquel for now; consider adjsuting this as well if persistent confusion. (2) Generalized weakness: Code(s): R53.1 - Weakness Status: Acute Assessment and Plan: Likely secondary to sedentary life style imposed by pandemic. Start PT/OT start (3) Lactic acidosis: Code(s): E87.2 - Acidosis Status: Acute Assessment and Plan: Lactic acid elevated at 2.5 for unclear reasons. UA normal. CXR clear. No fevers or elevated WBC. Repeat lactic acid trending down. Repeat in am. (4) Frequent falls: Code(s): R29.6 - Repeated falls Status: Acute Assessment and Plan: Related to his weakness and old CVAs. Start PT/OT (5) Primary hypertension: Code(s): I10 - Essential (primary) hypertension Status: Acute Assessment and Plan: Patient's blood pressure was reviewed on 11/05 Blood pressure mildly elevated. Will resume metoprolol and Imdur. Continue to monitor. (6) Type 2 diabetes mellitus: Qualifiers: Diabetes mellitus complication status: without complication Diabetes mellitus senior care insulin use: without senior care use Qualified Code(s): E11.9 - Type 2 diabetes mellitus without complications Code(s): E11.9 - Type 2 diabetes mellitus without complications Status: Chronic Assessment and Plan: Last A1c was 6.3. The patient's blood glucose was reviewed on 11/05 Glucose remains well controlled. Start AccuCheks covering with sliding scale. Hypoglycemia protocol will be available as needed. Hold metformin (7) Dementia: Qualifiers: Dementia behavioral disturbance: without behavioral disturbance Dementia type: unspecified type Qualified Code(s): F03.90 - Unspecified dementia without behavioral disturbance Code(s): F03.90 - Unspecified dementia without behavioral disturbance Status: Acute Assessment and Plan: Most likely etiology of his confusion is his worsening dementia. EEG ordered. Appreciate neurology input. Will resume donepezil and Seroquel. Placement being arranged. Consider adding Namenda. (8) GERD (gastroesophageal reflux disease): Qualifiers: Esophagitis presence: esophagitis presence not specified Qualified Code(s): K21.9 - Gastro-esophageal reflux disease without esophagitis Code(s): K21.9 - Gastro-esophageal reflux disease without esophagitis Status: Acute Assessment and Plan: Stable. Continue omeprazole (9) CAD (coronary artery disease): Qualifiers: Associated angina: without angina Coronary Disease-Associated Artery/Lesion type: bypass graft [place] vs. transplanted heart: [place] heart Qualified Code(s): I25.810 - Atherosclerosis of coronary artery bypass graft(s) without angina pectoris Code(s): I25.10 - Atherosclerotic heart disease of [place] coronary artery without angina pectoris Status: Chronic Assessment and Plan: Stable. Continue ASA, metoprolol, isosorbide mononitrate and atorvastatin (10) DVT prophylaxis: Code(s): Z29.9 - Encounter for prophylactic measures, unspecified Status: Acute Assessment and Plan: Lovenox Subjective Date/time seen: 11/05/20 17:47 Interval history: 80yo male with DM, CAD, HTN and hx of CVA here for confusion. Patient is alert but confused and unable to provide hx. Review of Systems Review of Systems: ROS unobtain
[2020-11-05] MEDS: ACETAMINOPHEN 500 MG TABLET 1000 MG PO (18:49)
[2020-11-05] MEDS: QUEtiapine FUMARATE 25 MG TABLET PO (18:50)
[2020-11-05] MEDS: ATORVASTATIN 40 MG TABLET PO (18:50)
[2020-11-05] MEDS: TAMSULOSIN HCL 0.4 MG CAPSULE PO (20:36)
[2020-11-05] MEDS: PANTOPRAZOLE 40 MG TABLET PO (20:36)
[2020-11-05] MEDS: METOPROLOL TARTRATE 25 MG TABLET PO (20:37)
[2020-11-05] MEDS: DONEPEZIL HCL 10 MG TABLET PO (20:37)
[2020-11-05 21:12] LABS: Glucose Point of Care 108 (65-105)
[2020-11-05] MEDS: MELATONIN 3 MG TABLET PO (23:57)
[2020-11-06] MEDS: LORazepam (*CRX) 0.5 MG TABLET PO (02:50)
[2020-11-06 06:00] VITALS: BP 168/63; PULSE 63; RESP 18; TEMP 36.2; O2SAT 97
[2020-11-06 06:18] LABS: Anion Gap 7 mmol/L (8-16); Blood Urea Nitrogen 14 mg/dL (9-20); Calcium 9.4 mg/dL (8.4-10.2); Carbon Dioxide 24 mmol/L (22-30); Chloride 109 mmol/L (98-107); Estimated CRCL calculation 83 ml/min; Estimated Glomerular Filt Rate > 60; Glucose 124 mg/dL (75-110); Magnesium 1.4 mg/dL (1.6-2.3); Potassium 4.4 mmol/L (3.4-5.0); Sodium 140 mmol/L (137-145)
--- NOTE | 2020-11-06 07:02 | PCNEURO ---
Dr Monique discontinued EEG as patient had one done last month as outpatient for same diagnosis.
[2020-11-06 08:25] LABS: Glucose Point of Care 114 (65-105)
[2020-11-06 08:36] VITALS: PULSE 64
[2020-11-06] MEDS: MAGNESIUM OXIDE 400 MG TABLET PO (08:36)
[2020-11-06] MEDS: METOPROLOL TARTRATE 25 MG TABLET PO (08:36)
[2020-11-06] MEDS: ISOSORBIDE MONONITRATE 60 MG TAB.ER.24H 120 MG PO (08:36)
[2020-11-06 08:37] VITALS: PULSE 64; RESP 18; O2SAT 97
[2020-11-06] MEDS: ASPIRIN 81 MG ENTERIC TABLET PO (08:37)
[2020-11-06] MEDS: ACETAMINOPHEN 500 MG TABLET 1000 MG PO ×3 (08:37→17:48)
[2020-11-06] MEDS: PANTOPRAZOLE 40 MG TABLET PO (08:37)
[2020-11-06 11:37] LABS: Glucose Point of Care 190 (65-105)
[2020-11-06 14:00] VITALS: BP 122/95; PULSE 68; RESP 18; TEMP 36.5; O2SAT 99
--- NOTE | 2020-11-06 16:32 | PM.DS ---
DS: Admitting Diagnosis Admitting Diagnosis Admitting Diagnosis: Confusion, falls DS: Discharge Diagnosis Discharge Diagnosis (1) Altered mental status: Qualifiers: Altered mental status type: delirium Qualified Code(s): R41.0 - Disorientation, unspecified Code(s): R41.82 - Altered mental status, unspecified Status: Acute Assessment and Plan: Patient with progressive cognitive decline over the last year or so. CT of the head with no acute abnormalities. Neuro consulted. EEG ordered and is pending. NH placement being arranged. states patient just started on Seroquel and Aricept for hallucinations. He however states that the patient's confusion is at baseline and that she had him brought to the ED for falls and inability to care for him. As such, his confusion is probably baseline. (2) Generalized weakness: Code(s): R53.1 - Weakness Status: Acute Assessment and Plan: Likely secondary to sedentary life style imposed by pandemic. PT/OT worked with the patient. Transfer to SNF today. (3) Lactic acidosis: Code(s): E87.2 - Acidosis Status: Acute Assessment and Plan: Lactic acid elevated at 2.5 for unclear reasons. UA normal. CXR clear. No fevers or elevated WBC. Repeat lactic acid normal now. (4) Frequent falls: Code(s): R29.6 - Repeated falls Status: Acute Assessment and Plan: Related to his weakness and old CVAs. Continue PT/OT. (5) Primary hypertension: Code(s): I10 - Essential (primary) hypertension Status: Acute Assessment and Plan: Patient's blood pressure was monitored closely. We resumed metoprolol and Imdur. Blood pressure elevated at times but remained stable. (6) Type 2 diabetes mellitus: Qualifiers: Diabetes mellitus complication status: without complication Diabetes mellitus intermediate insulin use: without intermediate use Qualified Code(s): E11.9 - Type 2 diabetes mellitus without complications Code(s): E11.9 - Type 2 diabetes mellitus without complications Status: Chronic Assessment and Plan: Last A1c was 6.3. The patient's blood glucose was monitored closely by [employer] covering with sliding scale. Hypoglycemia protocol was available as needed. (7) Dementia: Qualifiers: Dementia behavioral disturbance: without behavioral disturbance Dementia type: unspecified type Qualified Code(s): F03.90 - Unspecified dementia without behavioral disturbance Code(s): F03.90 - Unspecified dementia without behavioral disturbance Status: Acute Assessment and Plan: Most likely etiology of his confusion is his worsening dementia. Consider Lewy body. EEG ordered. Appreciate neurology input. We resumed donepezil and Seroquel. Placement being arranged. (8) GERD (gastroesophageal reflux disease): Qualifiers: Esophagitis presence: esophagitis presence not specified Qualified Code(s): K21.9 - Gastro-esophageal reflux disease without esophagitis Code(s): K21.9 - Gastro-esophageal reflux disease without esophagitis Status: Acute Assessment and Plan: Stable. We continued omeprazole. (9) CAD (coronary artery disease): Qualifiers: Associated angina: without angina Coronary Disease-Associated Artery/Lesion type: bypass graft [place] vs. transplanted heart: [place] heart Qualified Code(s): I25.810 - Atherosclerosis of coronary artery bypass graft(s) without angina pectoris Code(s): I25.10 - Atherosclerotic heart disease of [place] coronary artery without angina pectoris Status: Chronic Assessment and Plan: Stable. We continued ASA, metoprolol, isosorbide mononitrate and atorvastatin. DS: Summary Hospital Course Reason for hospitalization: 80yo male with dementia, hallucinations, DM and CAD here for increasing number of falls and worsening confusion.
[2020-11-06 17:18] LABS: Glucose Point of Care 130 (65-105)
[2020-11-06] MEDS: QUEtiapine FUMARATE 25 MG TABLET PO (17:49)
[2020-11-06] MEDS: ATORVASTATIN 40 MG TABLET PO (17:49)
[2020-11-06 19:24] LABS: SARS-CoV-2 RNA PCR Negative
== END 2020-11-06 19:10 | DRG 948 ==
LOC: ANHED 04:27 → ANH2MED 04:34
PROVIDERS: Admitting Provider Internal Medicine; Emergency Provider Emergency Medicine; PCP Physician Assistant; Visit Provider Internal Medicine
DX: R41.0 Disorientation, unspecified (principal); E87.2 Acidosis; I25.810 Atherosclerosis of coronary artery bypass graft(s) without angina pectoris; Z20.822 Contact with and (suspected) exposure to COVID-19; F03.90 Unspecified dementia, unspecified severity, without behavioral disturbance, psychotic disturbance, mood disturbance, and anxiety; R29.6 Repeated falls; W18.30XA Fall on same level, unspecified, initial encounter; R53.1 Weakness; I10 Essential (primary) hypertension; E11.43 Type 2 diabetes mellitus with diabetic autonomic (poly)neuropathy; E11.42 Type 2 diabetes mellitus with diabetic polyneuropathy; K31.84 Gastroparesis; K21.9 Gastro-esophageal reflux disease without esophagitis; E78.5 Hyperlipidemia, unspecified; Z79.82 Long term (current) use of aspirin; Z79.84 Long term (current) use of oral hypoglycemic drugs; Z79.899 Other long term (current) drug therapy; Z86.73 Personal history of transient ischemic attack (TIA), and cerebral infarction without residual deficits; Z87.891 Personal history of nicotine dependence; Z95.1 Presence of aortocoronary bypass graft; Z98.1 Arthrodesis status
CPT/HCPCS: 36415; 70450; 71045; 80048; 80053; 81001; 82948; 83605; 83735; 84484; 85025; 85610; 85730; 93005; 97162; 97165; 97535; 99285; A9270; C9803; J7030; U0003; U0005

== ENCOUNTER 2020-11-07 16:14 | Emergency (ER) | payer MEDICARE, MEDICAID, SELFPAY ==
--- NOTE | ~2020-11-07 | XR_ITS ---
EXAMINATION: XR hip BI 2V w AP pelvis EXAM DATE: 11/07/2020 17:15 INDICATION: fall, dementia. TECHNIQUE: Each hip imaged independently (separate right and also left hip) crosstable lateral and ' frog-leg' and frontal projections for interpretation. Frontal projection pelvis. There is no prior study for comparison. FINDINGS: There is left hip arthroplasty, hardware is intact. There is moderate right hip primary ost eoarthritis. No evidence of right hip avascular necrosis. There are no acute fractures identified. S acrum, sacroiliac joints, sacral arcuate lines are intact. Moderate lumbar spondylosis and mild scoli osis. Mild scattered arteriosclerotic disease. IMPRESSION: 1. No acute hip or pelvis findings. Reviewed, dictated and finalized at location A.
--- NOTE | ~2020-11-07 | XR_ITS ---
EXAMINATION: XR chest 1V EXAM DATE: 11/07/2020 17:16 INDICATION: Fall, dementia. TECHNIQUE: Portable AP frontal chest x-ray was obtained. Comparison is made to prior examination from 11/05/2020. FINDINGS: Sternotomy wires are present without findings to suggest sternal dehiscence. The lungs are clear. There are no pleural effusions. The cardiomediastinal silhouette is within normal limits. T here is no pneumothorax suspected. There is severe right glenohumeral primary osteoarthritis. Cervic al fusion hardware. IMPRESSION: No acute cardiopulmonary findings. Reviewed, dictated and finalized at location A.
--- NOTE | ~2020-11-07 | XR_ITS ---
EXAMINATION: XR elbow LT min 3V EXAM DATE: 11/07/2020 17:16 INDICATION: Initial encounter following injury, with pain of the left elbow. Fall. TECHNIQUE: Left elbow frontal, lateral with flexion, and oblique projections obtained and reviewed. There is no prior study for comparison. FINDINGS: Left elbow anterior humeral line intact. There are no acute fractures or dislocations hoda ntified. There is no subcutaneous gas. The soft tissue is unremarkable. There are no radiopaque f oreign bodies. IMPRESSION: 1. XR elbow LT min 3V exam without acute osseous findings. Reviewed, dictated and finalized at location A.
--- NOTE | ~2020-11-07 | CT_ITS ---
EXAMINATION: CT brain wo con, CT cervical spine wo con EXAM DATE: 11/07/2020 16:51 INDICATION: Dementia. Fall, head injury. TECHNIQUE: Spiral CT of the head was performed without contrast. Axial, coronal and sagittal images were reviewed. Spiral CT of the cervical spine was performed without contrast. Axial images were rev iewed. Coronal and sagittal reformatted images were also reviewed. The dose-length product (DLP) fo r this examination was 605.33 mGy-cm. The exposure was tailored according to patient size, and itera tive reconstruction (ASIR) was used as additional dose reduction technique. Comparison is made to bowen or examination from 11/05/[address], 11/24/[address] FINDINGS: HEAD CT: There is no acute intraparenchymal hemorrhage. No evidence of intraparenchymal brain mass l esion. No evidence of acute infarction. There is moderate periventricular and subcortical hypodensit y, nonspecific but probably related to small vessel ischemic disease. There is moderate prominence of the sulci and ventricles related to cerebral atrophy. There is intracranial carotid arterioscler osis. There is no mass effect or midline shift. There is no obstructive hydrocephalus suspected. T here are no extra-axial collections. There are no acute calvarial fractures. Patient has had bilate ral ocular lens surgery. Scalp metallic foreign body causing artifact overlying frontal bone. The vi sualized sinuses and mastoid air cells are well aerated. CERVICAL CT: Intact anterior and interbody fusion C5-6. There is moderate to severe cervical disc dis ease, overall moderate cervical arthropathy. There is no evidence of acute cervical fracture. The od ontoid process is intact. Pre-dens space is normal. Prevertebral soft tissue is normal. There are no soft tissue abnormalities identified. There is no disc space widening or traumatic vertebral body subluxation suspected. A detailed level by level evaluation of spondylosis can be added as addendum if requested. IMPRESSION: 1. No acute intracranial findings or cervical fracture. 2. Intracranial senescent changes. 3. Cervical spondylosis. Intact C5-6 fusion. Reviewed, dictated and finalized at location A. IMPRESSION: 1. No acute intracranial findings or cervical fracture. 2. Intracranial senescent changes. 3. Cervical spondylosis. Intact C5-6 fusion.
[2020-11-07 16:22] VITALS: BP 154/74; PULSE 74; RESP 18; TEMP 36.8; O2SAT 98
--- NOTE | 2020-11-07 16:45 | ED.FALL ---
HPI - Fall General Chief Complaint: Fall Stated Complaint: FALL/ L HIP PAIN Time Seen by Provider: 11/07/20 16:24 Source: EMS and RN notes reviewed Mode of arrival: EMS Limitations: dementia History of Present Illness HPI Narrative: Patient is an 80 year old male who arrives from [place] by EMS. Patient had fall at [place] while using restroom. EMS reports denies LOC. Patient unable to answer questions appropriately related to dementia. Patient would not tolerate c collar per EMS. NH report states patient hit left head, arm and hip/leg and that patient was reporting pain. Patient has several skin tears to left arm, no shortening of leg noted. No visible injury to head. Per ems, no LOC reported. MD complaint: fall Related Data Home Medications Medication Instructions Recorded Confirmed aspirin 81 mg tablet,delayed 81 mg PO DAILY 06/07/19 11/05/20 release atorvastatin 40 mg tablet 40 mg PO QPM tablet 06/07/19 11/05/20 isosorbide mononitrate 60 mg 120 mg PO QAM tablet 06/07/19 11/05/20 tablet,extended release 24 hr acetaminophen [Tylenol Extra 1,000 mg PO TID 09/23/19 11/05/20 Strength] metoprolol tartrate 25 mg PO BID 09/23/19 11/05/20 tamsulosin 0.4 mg capsule 0.4 mg PO HS 08/27/20 11/05/20 Allergies Allergy/AdvReac Type Severity Reaction Status Date / Time DARBY Inhibitors Allergy Mild Unknown Verified 11/07/20 16:36 Review of Systems Review of Systems: Narrative: CONSTITUTIONAL: Denies fever, chills, or sweats. EYES: Denies visual changes, redness, or discharge. ENT: Denies rhinorrhea, congestion, sore throat, or otalgia. CARDIOVASCULAR: Denies chest pain, palpitations, or edema. RESPIRATORY: Denies cough or dyspnea. GASTROINTESTINAL: Denies abdominal pain, nausea, vomiting, or diarrhea. GENITOURINARY: Denies dysuria or hematuria. SKIN: Denies rash or itching. MUSCULOSKELETAL: left arm and hip pain (by NH and EMS) NEUROLOGIC:reports head pain (by NH and EMS) PSYCHIATRIC: Denies anxiety or depression. 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 Carotid artery calcification Carotid stenosis, left Chronic arthralgias of knees and hips CVA (cerebrovascular accident) Fusion of lumbar spine Gastroparesis GERD (gastroesophageal reflux disease) Gout Hyperlipidemia Hypertension Inguinal hernia Neuropathy Osteoarthritis of right shoulder Peripheral neuropathy Rotator cuff insufficiency of left shoulder Skin cancer TIA (transient ischemic attack) Type 2 diabetes mellitus Surgical History Surgical History H/O carotid endarterectomy H/O inguinal hernia repair History of heart bypass surgery 2003 History of left hip replacement History of surgical removal of skin lesion Hx of appendectomy Hx of fusion of cervical spine Family History Family History Mother Acute myocardial infarction Other Hypertension Social History Social History Social History: Mr. Gonzales lives at home with his in [place] and is retired from working as a maya. He reports drinking about 4-5 beers per week. He smoked 2-3 packs per day of cigarettes x40 years, quit in 2002. No other drug use. PCP is Dr. Kaila Angela. He designates his , [place], as his surrogate decision maker. He wishes to be full code status. Smoking status: Former smoker Tobacco type: cigarettes Second hand tobacco smoke exposure: Yes Smoking end date: 06/27/02 Alcohol intake: never Drinks per week: 5 Substance use: never Substance use type: does not use Gender identity (if verbalized by the patient): Male Spiritual care concerns: No Agree to blood products: Yes Comments At the time of signature, I have reviewed
[2020-11-07 17:51] LABS: Basophils Percent Auto 0.5 % (0.2-1.2); Eosinophils Absolute Auto 0.1 K/mm3 (0-0.3); Eosinophils Percent Auto 1.2 % (0-4.4); Hematocrit 36.7 % (42.0-52.0); Hemoglobin 11.6 g/dL (14.0-18.0); Immature Granulocyte Absolute 0.05 K/mm3 (0.00-0.031); Immature Granulocyte Percent A 0.8 % (0-0.5); Lymphocytes Absolute Auto 1.18 K/mm3 (0.9-3.2); Lymphocytes Percent Auto 18.2 % (18.3-44.2); Mean Corpuscular HGB Conc 31.6 g/dl (32-36); Mean Corpuscular Hemoglobin 29.4 pg (26-34); Mean Corpuscular Volume 93.1 fl (80-100); Mean Platelet Volume 10.1 fl (7.4-10.4); Monocytes Absolute Auto 0.7 K/mm3 (0.1-0.6); Monocytes Percent Auto 10.8 % (2.6-8.5); Neutrophils Absolute Auto 4.5 K/mm3 (1.3-6.7); Neutrophils Percent Auto 68.5 % (45.5-73.1); Platelet Count Result 165 k/mm3 (150-375); Red Blood Count 3.94 M/mm3 (4.6-6.20); Red Cell Distribution Width 15.2 % (11.5-14.5); White Blood Count 6.5 K/mm3 (4.5-10.0)
[2020-11-07 18:01] LABS: Alanine Aminotransferase 14 U/L (4-50); Albumin Level 4.4 g/dL (3.5-5.1); Alkaline Phosphatase 90 U/L (38-126); Anion Gap 9 mmol/L (8-16); Aspartate Amino Transferase 26 U/L (17-59); Bilirubin,Total 0.2 mg/dL (0.2-1.3); Blood Urea Nitrogen 19 mg/dL (9-20); Calcium 9.8 mg/dL (8.4-10.2); Carbon Dioxide 27 mmol/L (22-30); Chloride 105 mmol/L (98-107); Estimated CRCL calculation 54 ml/min; Estimated Glomerular Filt Rate > 60; Glucose 133 mg/dL (75-110); Potassium 4.5 mmol/L (3.4-5.0); Sodium 141 mmol/L (137-145)
[2020-11-07 18:02] LABS: Prothrombin Time 13.9 Seconds (11.1-14.7)
[2020-11-07 18:03] LABS: Partial Thromboplastin Time 25.1 SECONDS (22.3-36.8)
[2020-11-07 18:12] VITALS: BP 164/78; PULSE 86; RESP 16; O2SAT 98
== END 2020-11-07 19:26 ==
PROVIDERS: Emergency Provider Nurse Practitioner; PCP Physician Assistant
DX: S41.112A Laceration without foreign body of left upper arm, initial encounter (principal); S51.012A Laceration without foreign body of left elbow, initial encounter; S61.412A Laceration without foreign body of left hand, initial encounter; I25.10 Atherosclerotic heart disease of native coronary artery without angina pectoris; E11.43 Type 2 diabetes mellitus with diabetic autonomic (poly)neuropathy; E11.42 Type 2 diabetes mellitus with diabetic polyneuropathy; K31.84 Gastroparesis; E78.5 Hyperlipidemia, unspecified; I10 Essential (primary) hypertension; Z79.82 Long term (current) use of aspirin; I65.22 Occlusion and stenosis of left carotid artery; M19.011 Primary osteoarthritis, right shoulder; Z86.73 Personal history of transient ischemic attack (TIA), and cerebral infarction without residual deficits; Z85.828 Personal history of other malignant neoplasm of skin; Z96.642 Presence of left artificial hip joint; Z98.1 Arthrodesis status; Z95.1 Presence of aortocoronary bypass graft; Z87.891 Personal history of nicotine dependence; M47.812 Spondylosis without myelopathy or radiculopathy, cervical region; Z79.84 Long term (current) use of oral hypoglycemic drugs; W01.10XA Fall on same level from slipping, tripping and stumbling with subsequent striking against unspecified object, initial encounter
CPT/HCPCS: 36415; 70450; 71045; 72125; 73080; 73521; 80053; 85025; 85610; 85730; 99284